=== PATIENT | female | born 2000 | race Caucasian/White ===

== ENCOUNTER 2023-10-14 13:47 | Emergency (ER) | payer OTHER ==
[2023-10-14 14:19] VITALS: BP 122/84; PULSE 65; RESP 18; TEMP 98.7; BMI 21.4
[2023-10-14] MEDS ORDERED: ALPRAZolam 1 MG TABLET PO PRN (15:53)
[2023-10-14] MEDS ORDERED: ALPRAZolam 0.25 MG TABLET ONE (15:57)
[2023-10-14] MEDS ORDERED: ALPRAZolam 0.25 MG TABLET PO PRN (16:10)
== END 2023-10-14 16:12 | disposition home or self-care (01) ==
LOC: FER 13:47
DX: R06.00 Dyspnea, unspecified (principal)
CPT/HCPCS: 71046-TC-FY; 81025; 82962; 93005; 99285-25

== ENCOUNTER 2025-02-24 22:53 | Emergency (ER) | payer OTHER ==
[2025-02-24 23:03] VITALS: BP 122/76; PULSE 75; RESP 16; TEMP 98.3; BMI 21.4
[2025-02-24 23:30] LABS: EPITHELIAL CELLS 0-5 /hpf
== END 2025-02-25 00:08 | disposition home or self-care (01) ==
LOC: FER 22:53
DX: R07.89 Other chest pain (principal); R06.02 Shortness of breath; N64.4 Mastodynia; Z56.6 Other physical and mental strain related to work
CPT/HCPCS: 71046-TC-FY; 81003; 81015; 81025; 93005; 99285-25